=== PATIENT | female | born 1985 | race Caucasian/White ===

== ENCOUNTER 2018-06-23 14:49 | Inpatient (IN) | payer MEDICAID ==
[~2018-06-23] VITALS: Ht 165.1 cm; Wt 88.5 kg
[2018-06-29] MEDS ORDERED: CARBOPROST TROMETHAMINE 250 MCG/ML AMPUL IM PRN (20:45)
[2018-06-29] MEDS ORDERED: MISOPROSTOL 100MCG TABLET VG SCH (20:45)
[2018-06-29] MEDS ORDERED: METHYLERGONOVINE MALEATE 0.2 MG/ML IM PRN (20:45)
[2018-06-29] MEDS ORDERED: BUTORPHANOL TARTRATE 2 MG/ML VIAL IV PRN (20:45)
[2018-06-29] MEDS: LACTATED RINGERS 1,000 ML IV SCH ×2 (21:32→22:32)
[2018-06-29 22:04] LABS: CLARITY URINE CLOUDY (CLEAR); COLOR URINE DARK YELLOW (YELLOW); KETONES URINE TRACE (NEGATIVE); LEUKOCYTE ESTERASE URINE NEGATIVE (NEGATIVE); NITRITE URINE NEGATIVE (NEGATIVE); OCCULT BLOOD URINE NEGATIVE (NEGATIVE); PROTEIN URINE 1+ (NEGATIVE); SPECIFIC GRAVITY URINE 1.043 (1.005-1.030)
[2018-06-29 22:09] LABS: INR 0.9; PARTIAL THROMBOPLASTIN TIME 24.4 sec (23.4-31.0); PROTHROMBIN TIME 9.3 sec (9.1-11.1)
[2018-06-29 22:11] LABS: BASOPHILS % 0.3 % (0.0-2.0); EOSINOPHILS % 0.7 % (0.0-5.0); HEMATOCRIT. 37.8 % (36.0-48.0); HEMOGLOBIN. 12.4 g/dL (12.0-16.0); LYMPHOCYTES % 17.8 % (20.0-50.0); MEAN CORPUSCULAR HEMOGLOBIN 27.6 pg (28.0-32.0); MEAN CORPUSCULAR VOLUME 83.7 fL (81.0-99.0); MONOCYTES % 6.1 % (2.0-8.0); NEUTROPHILS % 75.1 % (40.0-76.0); PLATELET 197 x1000/uL (130-400); RED BLOOD CELL COUNT 4.52 mill/uL (4.2-5.4); RED CELL DISTRIBUTION WIDTH 14.2 % (11.6-14.6)
[2018-06-29] MEDS: MISOPROSTOL 100MCG TABLET VG PRN (22:27)
[2018-06-29 22:33] LABS: *AMPHETAMINES SCREEN URINE NEGATIVE (NEGATIVE); *BARBITURATES SCREEN URINE NEGATIVE (NEGATIVE); *BENZODIAZEPINES SCREEN URINE NEGATIVE (NEGATIVE); *COCAINE SCREEN URINE NEGATIVE (NEGATIVE); METHADONE URINE SCREEN NEGATIVE (NEGATIVE)
[2018-06-29 22:34] LABS: CANNABINOID URINE SCREEN NEGATIVE (NEGATIVE); OPIATES URINE SCREEN NEGATIVE (NEGATIVE); PHENCYCLIDINE URINE SCREEN NEGATIVE (NEGATIVE)
[2018-06-29 23:03] LABS: HEPATITIS B SURFACE ANTIGEN NEGATIVE
[2018-06-30] MEDS: MISOPROSTOL 100MCG TABLET VG PRN (02:00)
[2018-06-30] MEDS: LACTATED RINGERS 1,000 ML IV SCH ×2 (05:30→06:11)
[2018-06-30] MEDS ORDERED: FENTANYL CITRATE/PF 50MCG/ML 5ML VIAL ONE (05:53)
[2018-06-30] MEDS ORDERED: BUPIVACAINE HCL/PF 0.25% (2.5MG/ML) 10ML ONE (05:53)
[2018-06-30] MEDS ORDERED: BUPIVACAINE HCL/NS/PF EPIDURAL 100 ML EP SCH (06:00)
[2018-06-30] MEDS: DEXT 5%/LR + PITOCIN 20UNITS/L 1,000 ML IV SCH ×2 (09:48→10:59)
[2018-06-30] MEDS ORDERED: GLYCERIN/WITCH HAZEL LEAF MEDICATED PAD TOP PRN (10:00)
[2018-06-30] MEDS ORDERED: IBUPROFEN 400MG TABLET PO PRN (10:00)
[2018-06-30] MEDS ORDERED: BENZOCAINE/LANOLIN/ALOE VERA SPRAY TOP PRN (10:00)
[2018-06-30] MEDS ORDERED: HEMORRHOIDAL SUPP PR PRN (10:00)
[2018-06-30] MEDS ORDERED: BISACODYL 10MG SUPP PR PRN (10:00)
[2018-06-30] MEDS ORDERED: DEXT 5%/LR + PITOCIN 20UNITS/L 1,000 ML IV SCH (10:51)
[2018-06-30 12:20] VITALS: BP 138/83
[2018-06-30 12:45] VITALS: BP 133/76
[2018-06-30 14:00] VITALS: BP 127/77
[2018-06-30 18:05] VITALS: BP 121/67
[2018-06-30] MEDS: ACETAMINOPHEN WITH CODEINE 300/30MG TABLET PO PRN (19:24)
[2018-06-30 19:40] VITALS: BP 108/65
[2018-06-30] MEDS: DOCUSATE SODIUM 100MG CAPSULE PO SCH (21:00)
[2018-06-30] MEDS: SIMETHICONE 80MG TABLET CHEW PO SCH (21:01)
[2018-06-30] MEDS: MAGNESIUM/ALUMINUM HYDROXIDE/SIMETHICONE 30ML UDC PO SCH (21:01)
[2018-07-01] MEDS: ACETAMINOPHEN WITH CODEINE 300/30MG TABLET PO PRN ×3 (03:46→20:39)
[2018-07-01] MEDS: GUAIFENESIN-DM 200MG-20MG/10ML UDC PO PRN ×3 (03:46→20:38)
[2018-07-01 04:15] VITALS: BP 104/64
[2018-07-01 07:32] LABS: BASOPHILS % 0.2 % (0.0-2.0); EOSINOPHILS % 1.1 % (0.0-5.0); HEMATOCRIT. 36.8 % (36.0-48.0); HEMOGLOBIN. 12.1 g/dL (12.0-16.0); LYMPHOCYTES % 23.1 % (20.0-50.0); MEAN CORPUSCULAR HEMOGLOBIN 27.7 pg (28.0-32.0); MEAN PLATELET VOLUME 9.9 fl (7.4-10.4); MONOCYTES % 6.9 % (2.0-8.0); NEUTROPHILS % 68.7 % (40.0-76.0); PLATELET 158 x1000/uL (130-400); RED BLOOD CELL COUNT 4.38 mill/uL (4.2-5.4); RED CELL DISTRIBUTION WIDTH 14.1 % (11.6-14.6)
[2018-07-01 08:20] VITALS: BP 109/64
[2018-07-01] MEDS: SIMETHICONE 80MG TABLET CHEW PO SCH ×4 (09:25→20:39)
[2018-07-01] MEDS: MAGNESIUM/ALUMINUM HYDROXIDE/SIMETHICONE 30ML UDC PO SCH ×4 (09:26→21:00)
[2018-07-01] MEDS: PRENATAL VIT/FE FUMARATE/FA TABLET PO SCH (09:26)
[2018-07-01 16:15] VITALS: BP 108/69
[2018-07-01 20:00] VITALS: BP 109/68
[2018-07-01] MEDS: DOCUSATE SODIUM 100MG CAPSULE PO SCH (20:39)
[2018-07-02 04:10] VITALS: BP 126/62
[2018-07-02 08:00] VITALS: BP 96/60
[2018-07-02] MEDS: PRENATAL VIT/FE FUMARATE/FA TABLET PO SCH (08:35)
[2018-07-02] MEDS: GUAIFENESIN-DM 200MG-20MG/10ML UDC PO PRN (08:35)
[2018-07-02] MEDS: SIMETHICONE 80MG TABLET CHEW PO SCH (08:36)
[2018-07-02] MEDS: MAGNESIUM/ALUMINUM HYDROXIDE/SIMETHICONE 30ML UDC PO SCH (08:36)
== END 2018-07-02 11:00 | disposition home or self-care (01) | DRG 560 ==
LOC: OBSVTOIN 06-29 20:01 → 8 EST LDRP 06-29 20:01 → 8EST 06-30 12:59
PROVIDERS: ADMIT Obstetrics & Gynecology; ATTEND Obstetrics & Gynecology
PROC: 10E0XZZ Delivery of Products of Conception, External Approach (ICD-10-PCS; principal; 2018-06-29)
PROC: 3E0R3BZ Introduction of Anesthetic Agent into Spinal Canal, Percutaneous Approach (ICD-10-PCS; 2018-06-29)
PROC: 00HU33Z Insertion of Infusion Device into Spinal Canal, Percutaneous Approach (ICD-10-PCS; 2018-06-29)
PROC: 3E0P7VZ Introduction of Hormone into Female Reproductive, Via Natural or Artificial Opening (ICD-10-PCS; 2018-06-29)
DX: O77.0 Labor and delivery complicated by meconium in amniotic fluid (principal); O69.81X0 Labor and delivery complicated by cord around neck, without compression, not applicable or unspecified; O70.0 First degree perineal laceration during delivery; Z3A.40 40 weeks gestation of pregnancy; Z37.0 Single live birth
CPT/HCPCS: 36415; 80305; 86592; 86703; 86762; 86850; 86900; 87340; 99281; J2590; J3010; J3490; A4315